=== PATIENT | female | born 2005 | race Caucasian/White ===

== ENCOUNTER 2024-04-12 15:26 | Inpatient (IN) | payer OTHER ==
[2024-04-12] MEDS ORDERED: ACETAMINOPHEN 325 MG TABLET PO PRN (15:45)
[2024-04-12] MEDS ORDERED: MELATONIN 5 MG TABLET PO PRN (15:45)
[2024-04-12] MEDS ORDERED: TraZODone HCL 50 MG TABLET PO PRN (17:15)
[2024-04-12] MEDS ORDERED: *PATIENT'S OWN MED [ENTER DRUG, DOSE, FREQUENCY IN COMMENTS] CLINICAL ONE (17:30)
[2024-04-12] MEDS ORDERED: IBUPROFEN 800 MG TABLET PO SCH (18:00)
[2024-04-12] MEDS ORDERED: CefTRIAXone SODIUM 2 GM in DEXTROSE 5%-WATER 50 ML IV ONE (18:45)
[2024-04-12] MEDS ORDERED: GABAPENTIN 300 MG CAPSULE PO SCH (21:00)
[2024-04-12] MEDS ORDERED: MELATONIN 5 MG TABLET PO SCH (21:00)
[2024-04-13] MEDS ORDERED: PANTOPRAZOLE SODIUM 40 MG DR TABLET PO SCH (09:00)
[2024-04-13] MEDS ORDERED: ENOXAPARIN SODIUM 40 MG/0.4 ML PF SYRINGE SQ SCH (09:00)
[2024-04-13] MEDS ORDERED: TRETINOIN TP SCH (09:00)
[2024-04-13] MEDS ORDERED: POLYETHYLENE GLYCOL 3350 17 GM PACKET PO SCH (09:00)
[2024-04-14] MEDS ORDERED: PRENATAL NO.137/IRON/FOLIC ACID TABLET PO SCH (09:00)
== END 2024-04-12 19:36 | disposition short-term general hospital (02) | DRG 96 ==
LOC: 2WR 17:54
PROVIDERS: ADMIT Physical Medicine & Rehabilitation; ATTEND Physical Medicine & Rehabilitation
DX: G61.0 Guillain-Barre syndrome (principal); R29.810 Facial weakness; R20.2 Paresthesia of skin; R53.1 Weakness
CPT/HCPCS: J0696; J7060

== ENCOUNTER 2024-04-14 13:07 | Inpatient (IN) | payer OTHER ==
[~2024-04-14] VITALS: Ht 172.7 cm; Wt 67.1 kg
[2024-04-14 17:10] VITALS: BP 135/98; PULSE 98; RESP 18; TEMP 98; O2SAT 98
[2024-04-14] MEDS: IBUPROFEN 800 MG TABLET PO SCH (18:43)
[2024-04-14 20:00] VITALS: BP 144/88; PULSE 117; RESP 18; TEMP 98.3; O2SAT 98
[2024-04-14] MEDS: SENNOSIDES 8.6 MG TABLET PO SCH (21:19)
[2024-04-14] MEDS: DOCUSATE SODIUM 100 MG CAPSULE PO SCH (21:19)
[2024-04-14] MEDS: DOXYCYCLINE HYCLATE 100 MG TABLET PO SCH (21:19)
[2024-04-14] MEDS: MELATONIN 5 MG TABLET PO PRN (21:19)
[2024-04-14] MEDS: GABAPENTIN 300 MG CAPSULE PO PRN (21:20)
[2024-04-15 08:00] VITALS: BP 141/82; PULSE 117; RESP 18; TEMP 98.4; O2SAT 98
[2024-04-15 08:05] VITALS: PULSE 102
[2024-04-15] MEDS: ETHYL ALCOHOL 62% ANTISEPTIC NASAL SANITIZER 0.6 ML AMPUL NASAL SCH (08:17)
[2024-04-15 08:22] LABS: BASOPHILS % (AUTO) 0.9 % (0.0-2.0); EOSINOPHILS % (AUTO) 2.8 % (1.0-6.0); HEMATOCRIT 30.3 % (36-46); HEMOGLOBIN 10.6 g/dL (12.0-16.0); LYMPHOCYTES # (AUTO) 4.8 K/uL (1.0-4.8); LYMPHOCYTES % (AUTO) 55.6 % (22.0-44.0); MEAN CORPUSCULAR HEMOGLOBIN 29.3 pg (26.0-34.0); MEAN CORPUSCULAR HGB CONC 35.1 G/dL (31.0-37.0); MEAN CORPUSCULAR VOLUME 84 fL (80-100); MONOCYTES % (AUTO) 11.1 % (2.0-9.0); NEUTROPHILS # (AUTO) 2.6 K/uL (1.8-7.7); NEUTROPHILS % (AUTO) 29.6 % (40.0-70.0); PLATELET COUNT (AUTO) 333 K/uL (150-450); RED BLOOD CELL COUNT(AUTO) 3.62 MIL/uL (4.00-5.20); RED CELL DISTRIBUTION WIDTH 16.2 % (11.5-14.5); WHITE BLOOD COUNT (AUTO) 8.7 K/uL (4.5-11.0)
[2024-04-15] MEDS: PRENATAL NO.137/IRON/FOLIC ACID TABLET PO SCH (08:22)
[2024-04-15] MEDS: ENOXAPARIN SODIUM 40 MG/0.4 ML PF SYRINGE SQ SCH (08:22)
[2024-04-15 08:43] LABS: ALANINE AMINOTRANSFERASE 52 U/L (12-78); ALBUMIN 3.1 g/dL (3.4-5.0); ALKALINE PHOSPHATASE 98 U/L (46-116); ANION GAP 8 mmol/L (8-16); ASPARTATE AMINOTRANSFERASE 49 U/L (15-37); BILIRUBIN,TOTAL 0.9 mg/dL (0.1-1.0); CALCIUM, TOTAL 8.9 mg/dL (8.8-10.5); CARBON DIOXIDE 27 mmol/L (22-29); CHLORIDE 101 mmol/L (98-107); CREATININE 0.57 mg/dL (0.60-1.30); GLOMERULAR FILTR. RATE CALC > 60 mL/min (>60); GLUCOSE,RANDOM 86 mg/dL (70-110); POTASSIUM 3.8 mmol/L (3.5-5.1); SODIUM SERUM 136 mmol/L (136-145); TOTAL PROTEIN, SERUM 9.1 g/dL (6.4-8.2); UREA NITROGEN, BLOOD 15 mg/dL (7-18)
[2024-04-15] MEDS: PANTOPRAZOLE SODIUM 40 MG DR TABLET PO SCH (09:47)
[2024-04-15] MEDS: ACETAMINOPHEN 325 MG TABLET PO PRN (10:31)
[2024-04-15 20:00] VITALS: BP 138/86; PULSE 118; RESP 18; TEMP 98.1; O2SAT 100
[2024-04-16] MEDS: PANTOPRAZOLE SODIUM 40 MG DR TABLET PO SCH (05:55)
[2024-04-16 08:00] VITALS: BP 133/82; PULSE 118; RESP 18; TEMP 98.3; O2SAT 97
[2024-04-16] MEDS: DOCUSATE SODIUM 250 MG CAPSULE PO SCH (08:01)
[2024-04-16] MEDS ORDERED: IBUPROFEN 800 MG TABLET PO PRN (10:00)
[2024-04-16] MEDS: GABAPENTIN 300 MG CAPSULE PO SCH (15:44)
[2024-04-16 22:51] VITALS: BP 129/74; PULSE 119; RESP 18; TEMP 98.9; O2SAT 98
[2024-04-17 08:00] VITALS: BP 134/82; PULSE 109; RESP 18; TEMP 98.2; O2SAT 99
[2024-04-17] MEDS: DULoxetine HCL 30 MG CAPSULE PO SCH (11:02)
[2024-04-17 20:00] VITALS: BP 137/85; PULSE 106; RESP 18; TEMP 98.5; O2SAT 98
[2024-04-17] MEDS: DOCUSATE SODIUM 283 MG/5 ML MINI-ENEMA PR PRN (20:08)
[2024-04-17] MEDS: AMITRIPTYLINE HCL 25 MG TABLET PO SCH (20:48)
[2024-04-18 08:00] VITALS: BP 124/71; PULSE 98; RESP 19; TEMP 98.3; O2SAT 98
[2024-04-18 20:00] VITALS: BP 141/90; PULSE 111; RESP 18; TEMP 98.4; O2SAT 98
[2024-04-19 08:15] VITALS: BP 137/85; PULSE 71; RESP 19; TEMP 98.4; O2SAT 97
[2024-04-19 20:10] VITALS: BP 130/76; PULSE 106; RESP 18; TEMP 98.3; O2SAT 100
[2024-04-19 21:54] VITALS: O2SAT 100
[2024-04-20 08:05] VITALS: BP 130/80; PULSE 85; RESP 19; TEMP 98; O2SAT 98
[2024-04-20 09:23] VITALS: O2SAT 98
[2024-04-20] MEDS: LEVOFLOXACIN 500 MG TABLET PO SCH (11:06)
[2024-04-20 19:30] VITALS: BP 138/77; PULSE 101; RESP 18; TEMP 98.3; O2SAT 97
[2024-04-20 21:56] VITALS: O2SAT 97
[2024-04-21 08:05] VITALS: BP 140/73; PULSE 88; RESP 18; TEMP 97.8; O2SAT 99
[2024-04-21 09:30] VITALS: O2SAT 98
[2024-04-21 19:30] VITALS: BP 126/78; PULSE 104; RESP 18; TEMP 98.1; O2SAT 96
[2024-04-21] MEDS: METOPROLOL TARTRATE 25 MG TABLET PO SCH (19:43)
[2024-04-21 22:07] VITALS: O2SAT 96
[2024-04-22 08:00] VITALS: BP 133/73; PULSE 76; RESP 18; TEMP 98; O2SAT 97
[2024-04-22 15:45] VITALS: BP 116/71; PULSE 102; RESP 18; TEMP 97.5; O2SAT 100
[2024-04-22 20:30] VITALS: BP 129/73; PULSE 100; RESP 19; TEMP 98.1; O2SAT 98
[2024-04-22 20:58] VITALS: O2SAT 98
[2024-04-23] MEDS ORDERED: AMIT25TA10 PO (03:28)
[2024-04-23] MEDS ORDERED: GABA-1181 PO (03:28)
[2024-04-23] MEDS ORDERED: PANT-31 PO (03:28)
[2024-04-23] MEDS ORDERED: IRON1TAB24 PO (03:28)
[2024-04-23] MEDS ORDERED: DOCU-412 PO (03:28)
[2024-04-23] MEDS ORDERED: DULO-114 PO (03:28)
[2024-04-23 08:00] VITALS: BP 122/73; PULSE 95; RESP 18; TEMP 98.8; O2SAT 98
[2024-04-23 20:00] VITALS: BP 120/75; PULSE 85; RESP 18; TEMP 98.1; O2SAT 98
[2024-04-24 08:44] VITALS: BP 124/74; PULSE 107; RESP 19; TEMP 98.3; O2SAT 99
[2024-04-24 20:00] VITALS: BP 123/72; PULSE 93; RESP 18; TEMP 98.7; O2SAT 98
[2024-04-25 08:00] VITALS: BP 125/79; PULSE 95; RESP 18; TEMP 98.6; O2SAT 97
[2024-04-25 20:00] VITALS: BP 121/73; PULSE 102; RESP 18; TEMP 98.5; O2SAT 97
[2024-04-25] MEDS: MELATONIN 5 MG TABLET PO PRN (20:06)
[2024-04-25 20:36] VITALS: O2SAT 97
[2024-04-26 08:00] VITALS: BP 112/66; PULSE 86; RESP 18; TEMP 98.9; O2SAT 97
[2024-04-26 08:01] VITALS: O2SAT 97
[2024-04-26 20:00] VITALS: BP 123/77; PULSE 98; RESP 18; TEMP 98.6; O2SAT 98
[2024-04-27 08:00] VITALS: BP 119/71; PULSE 103; RESP 18; TEMP 98.3; O2SAT 98
[2024-04-27 20:00] VITALS: BP 135/77; PULSE 110; RESP 18; TEMP 98.2; O2SAT 95
[2024-04-28 08:00] VITALS: BP 115/80; PULSE 102; RESP 18; TEMP 98; O2SAT 98
[2024-04-28 20:10] VITALS: BP 128/66; PULSE 102; RESP 18; TEMP 98.4; O2SAT 99
[2024-04-28 22:18] VITALS: O2SAT 99
[2024-04-29 08:05] VITALS: BP 112/60; PULSE 88; RESP 18; TEMP 98.2; O2SAT 98
[2024-04-29 09:43] VITALS: O2SAT 98
[2024-04-29 20:00] VITALS: O2SAT 100
[2024-04-29 22:00] VITALS: BP 110/61; PULSE 99; RESP 18; TEMP 98.3; O2SAT 100
[2024-04-30 08:05] VITALS: BP 110/63; PULSE 84; RESP 18; TEMP 98.3; O2SAT 98
[2024-04-30 18:30] VITALS: BP 122/77; PULSE 108; RESP 18; O2SAT 98
[2024-04-30 20:40] VITALS: BP 122/74; PULSE 106; RESP 18; TEMP 97.7; O2SAT 97
[2024-04-30 21:52] VITALS: O2SAT 97
[2024-05-01 08:00] VITALS: BP 115/65; PULSE 103; RESP 18; TEMP 98.3; O2SAT 98
[2024-05-01 19:59] VITALS: BP 118/64; PULSE 100; RESP 19; TEMP 98.7; O2SAT 97
[2024-05-01 21:03] VITALS: O2SAT 97
[2024-05-02 08:05] VITALS: BP 120/69; PULSE 84; RESP 18; TEMP 98.2; O2SAT 98
[2024-05-02 12:55] VITALS: O2SAT 98
[2024-05-02 20:01] VITALS: BP 134/80; PULSE 93; RESP 19; TEMP 98; O2SAT 98
[2024-05-02 21:10] VITALS: O2SAT 98
[2024-05-03] MEDS ORDERED: ENOX40SY14 SQ (04:14)
[2024-05-03] MEDS ORDERED: METO25 PO (04:14)
[2024-05-03 08:10] VITALS: BP 111/65; PULSE 100; RESP 18; TEMP 98.3; O2SAT 100
[2024-05-03 12:30] VITALS: BP 115/62; PULSE 92; RESP 18; TEMP 98; O2SAT 98
[2024-05-03 20:00] VITALS: BP 118/74; PULSE 104; RESP 18; TEMP 98; O2SAT 98
[2024-05-03 21:32] VITALS: O2SAT 98
[2024-05-04 08:00] VITALS: BP 128/65; PULSE 99; RESP 18; TEMP 98.4; O2SAT 97
[2024-05-04] MEDS ORDERED: ACETAMINOPHEN 325 MG TABLET PO PRN (11:00)
[2024-05-04] MEDS ORDERED: DOCUSATE SODIUM 283 MG/5 ML MINI-ENEMA PR PRN (11:00)
[2024-05-04] MEDS ORDERED: IBUPROFEN 800 MG TABLET PO SCH (12:00)
[2024-05-04] MEDS ORDERED: IBUPROFEN 800 MG TABLET PO PRN (12:00)
[2024-05-04] MEDS: GABAPENTIN 300 MG CAPSULE PO SCH (16:07)
[2024-05-04 20:00] VITALS: BP 109/67; PULSE 94; RESP 18; TEMP 98.8; O2SAT 97
[2024-05-04] MEDS: AMITRIPTYLINE HCL 25 MG TABLET PO SCH (20:00)
[2024-05-04] MEDS: DOCUSATE SODIUM 250 MG CAPSULE PO SCH (20:00)
[2024-05-04] MEDS: ETHYL ALCOHOL 62% ANTISEPTIC NASAL SANITIZER 0.6 ML AMPUL NASAL SCH (20:00)
[2024-05-04] MEDS: METOPROLOL TARTRATE 25 MG TABLET PO SCH (20:01)
[2024-05-04] MEDS: SENNOSIDES 8.6 MG TABLET PO SCH (20:01)
[2024-05-04 22:33] VITALS: O2SAT 97
[2024-05-05] MEDS: PANTOPRAZOLE SODIUM 40 MG DR TABLET PO SCH (06:26)
[2024-05-05] MEDS: PRENATAL NO.137/IRON/FOLIC ACID TABLET PO SCH (07:45)
[2024-05-05] MEDS: DULoxetine HCL 30 MG CAPSULE PO SCH (07:46)
[2024-05-05] MEDS: ENOXAPARIN SODIUM 40 MG/0.4 ML PF SYRINGE SQ SCH (07:47)
[2024-05-05 08:00] VITALS: BP 110/64; PULSE 88; RESP 18; TEMP 98.2; O2SAT 97
[2024-05-05 20:00] VITALS: BP 104/69; PULSE 87; RESP 18; TEMP 98.5; O2SAT 99
[2024-05-05] MEDS: MELATONIN 5 MG TABLET PO PRN (20:54)
[2024-05-06 08:00] VITALS: BP 124/65; PULSE 91; RESP 18; TEMP 98.4; O2SAT 97
[2024-05-06 20:10] VITALS: BP 100/63; PULSE 92; RESP 19; TEMP 98.3; O2SAT 98
[2024-05-06 22:01] VITALS: O2SAT 98
[2024-05-07 08:15] VITALS: BP 122/68; PULSE 97; RESP 19; TEMP 98.4; O2SAT 98
[2024-05-07 11:44] VITALS: O2SAT 98
[2024-05-07 20:05] VITALS: BP 132/87; PULSE 107; RESP 18; TEMP 98.9; O2SAT 98
[2024-05-08] VITALS (7 sets, daily range): BP systolic 96–119; BP diastolic 59–64; PULSE 71–97; RESP 18; TEMP 97.4–98.8; O2SAT 98–100
[2024-05-09 08:00] VITALS: BP 111/65; PULSE 82; RESP 18; TEMP 98.3; O2SAT 98
[2024-05-09 20:15] VITALS: BP 123/72; PULSE 97; RESP 19; TEMP 98.9; O2SAT 99
[2024-05-09 20:20] VITALS: BP 123/72; PULSE 97; RESP 18; TEMP 98.9; O2SAT 99
[2024-05-09 21:54] VITALS: O2SAT 99
[2024-05-10 08:00] VITALS: BP 109/62; PULSE 81; RESP 18; TEMP 98.1; O2SAT 98
[2024-05-10 20:00] VITALS: BP 106/55; PULSE 102; RESP 18; TEMP 98.4; O2SAT 97
[2024-05-11 08:00] VITALS: BP 119/60; PULSE 89; RESP 19; TEMP 98.3; O2SAT 98
[2024-05-11 10:36] VITALS: BP 119/60; PULSE 89; RESP 19; TEMP 98.3; O2SAT 98
[2024-05-11 20:00] VITALS: O2SAT 96
[2024-05-11 20:10] VITALS: BP 111/67; PULSE 90; RESP 19; TEMP 98.5; O2SAT 96
[2024-05-12 08:00] VITALS: BP 122/69; PULSE 91; RESP 18; TEMP 97.7; O2SAT 100
[2024-05-12 20:05] VITALS: BP 115/61; PULSE 95; RESP 18; TEMP 98.4; O2SAT 99
[2024-05-13 00:45] VITALS: O2SAT 97
[2024-05-13 09:00] VITALS: BP 111/72; PULSE 105; RESP 18; TEMP 98.1; O2SAT 96
[2024-05-13 09:26] VITALS: O2SAT 96
[2024-05-13 19:42] VITALS: BP 112/61; PULSE 100; RESP 18; TEMP 98.3; O2SAT 99
[2024-05-13 23:04] VITALS: O2SAT 99
[2024-05-14 08:00] VITALS: BP 111/55; PULSE 88; RESP 19; TEMP 97.6; O2SAT 98
[2024-05-14] MEDS ORDERED: GABA-1181 PO (14:17)
[2024-05-14] MEDS ORDERED: DULO-114 PO (14:17)
[2024-05-14] MEDS ORDERED: METO25 PO (14:17)
[2024-05-14] MEDS ORDERED: IRON1TAB24 PO (14:17)
[2024-05-14] MEDS ORDERED: AMIT25TA10 PO (14:17)
[2024-05-14 20:00] VITALS: BP 107/65; PULSE 88; RESP 18; TEMP 98.4; O2SAT 100
[2024-05-15 08:05] VITALS: BP 129/70; PULSE 70; RESP 18; TEMP 98.6; O2SAT 98
[2024-05-15 10:24] VITALS: O2SAT 98
== END 2024-05-15 13:20 | disposition home health service (06) | DRG 95 ==
LOC: 2WR 17:10
PROVIDERS: ADMIT Physical Medicine & Rehabilitation; ATTEND Physical Medicine & Rehabilitation
DX: G61.0 Guillain-Barre syndrome (principal); E46 Unspecified protein-calorie malnutrition; G82.20 Paraplegia, unspecified; D64.9 Anemia, unspecified; D72.820 Lymphocytosis (symptomatic); R13.10 Dysphagia, unspecified; K59.00 Constipation, unspecified; Z74.09 Other reduced mobility; R47.1 Dysarthria and anarthria; M54.50 Low back pain, unspecified; R68.84 Jaw pain; R20.2 Paresthesia of skin; R26.9 Unspecified abnormalities of gait and mobility; Z68.22 Body mass index [BMI] 22.0-22.9, adult
CPT/HCPCS: 80053; 85025; 87081; 92507; 92523; 92526; 97110; 97112; 97116; 97163; 97167; 97530; 97535; 99366; J1650